=== PATIENT | female | born 1980 | race Hispanic/Latino ===

== ENCOUNTER 2016-12-15 14:00 | Outpatient (CLI) | payer OTHER ==
--- NOTE | 2016-12-15 16:05 | RAD ---
LEFT RIBS: 12/15/16 Three views obtained. HISTORY: Palpable nodule left chest. The left ribs appear unremarkable. There is no fracture or rib lesion seen. IMPRESSION: Unremarkable left ribs. POS: [facility]
== END 2016-12-15 14:01 | disposition home or self-care (01) ==
LOC: MADRAD 14:00
PROVIDERS: ATTEND Family Medicine
DX: R07.81 Pleurodynia (principal)

== ENCOUNTER 2017-03-29 12:08 | Outpatient (CLI) | payer OTHER | END 2017-03-29 12:09 | disposition home or self-care (01) | LOC: MADEKG 12:08 | PROVIDERS: ATTEND Family Medicine | DX: R42 Dizziness and giddiness (principal) | CPT/HCPCS: 93005; 93010 ==

== ENCOUNTER 2017-11-30 10:03 | Emergency (ER) | payer SELFPAY ==
[2017-11-30 10:33] LABS: Bilirubin Negative (Negative); Blood, Urine Negative (Negative); Clarity Clear (Clear); Glucose, Urine (Dipstick) Negative (Negative); Leukocyte Negative (Negative); Nitrite Negative (Negative); Protein, Urine (Dipstick) Negative (Neg-Trace); Urobilinogen 0.2 mg/dL (0.2-1.0)
[2017-11-30 10:34] LABS: Pregnancy Test - Urine (BHCG) Negative (Negative); Pregu Control Background? CLEAR/WHITE (CLR/WHITE); Pregu Control Bar Appear? YES (CONTROL BAR)
[2017-11-30 10:46] LABS: #Lymphocytes 1.3 thou/uL (1.20-3.40); #Monocytes 0.4 thou/uL (0.11-0.59); #Neutrophils 5.7 thou/uL (1.40-6.50); %Basophils 0.6 % (0.0-1.0); %Eosinophils 0.5 % (0.0-10.0); %Lymphocytes 17.1 % (21.0-51.0); %Monocytes 4.7 % (0.0-10.0); %Neutrophils 77.1 % (42.0-75.0); Hemoglobin 13.2 g/dL (12.0-16.0); Mean Corpuscular HGB CONC 33.5 g/dL (32.0-36.0); Mean Corpuscular Hemoglobin 28.6 pg (27.0-31.0); Mean Corpuscular Volume 85.4 fl (81.0-99.0); Mean Platelet Volume 6.7 fL (7.4-10.4); Platelet Count 321 thou/uL (130-400); RBC Distribution Width 11.6 % (11.5-14.5); Red Blood Cell (RBC) Count 4.61 mill/uL (4.20-5.40); White Blood Cell (WBC) Count 7.3 thou/uL (4.8-10.8)
[2017-11-30 11:01] LABS: ALT (SGPT) 20 U/L (8-55); AST (SGOT) 11 U/L (5-34); Albumin 4.3 g/dL (3.5-5.0); Alkaline Phosphatase 55 U/L (40-150); Anion Gap 13 mmol/L (10-20); BUN (Urea Nitrogen) 12 mg/dL (7.0-18.7); Bilirubin, Total 0.2 mg/dL (0.2-1.2); Calc. Creatinine Clearance 0 mL/min (70-130); Calcium 9.4 mg/dL (7.8-10.44); Carbon Dioxide 21 mmol/L (22-29); Chloride 109 mmol/L (98-107); Estimated GFR-MDRD Greater than 90; Globulin 3.3 g/dL (2.4-3.5); Glucose 106 mg/dL (70-105); Potassium 3.9 mmol/L (3.5-5.1); Protein, Total 7.6 g/dL (6.0-8.3); Sodium 139 mmol/L (136-145)
[2017-11-30 11:06] LABS: CKMB 0.5 ng/mL (0-6.6); Troponin I Less than 0.010 ng/mL (< 0.028)
--- NOTE | 2017-11-30 12:15 | RAD ---
CHEST 1 VIEW PROTABLE: HISTORY: A 37-year-old female with a history of chest pain. FINDINGS: Heart size is normal. The lungs are clear. IMPRESSION: No acute intrathoracic disease. No pneumonia, pneumothorax, pleural effusion, or other acute process . POS: [facility]
[2017-11-30 17:41] LABS: Free T4 (Free Thyroxine) 1.21 ng/dL (0.70-1.48)
== END 2017-11-30 11:38 | disposition home or self-care (01) ==
LOC: MADERS 10:03
DX: R55 Syncope and collapse (principal); E05.90 Thyrotoxicosis, unspecified without thyrotoxic crisis or storm; E78.00 Pure hypercholesterolemia, unspecified
CPT/HCPCS: 36415; 71045; 80053; 81003; 81025; 82553; 84439; 84443; 84479; 84484; 85025; 93005; 94760

== ENCOUNTER 2021-11-12 16:44 | Outpatient (CLI) | payer SELFPAY | END 2021-11-12 16:45 | disposition home or self-care (01) | LOC: MADRAD 16:44 | PROVIDERS: ATTEND Family Medicine | DX: R07.81 Pleurodynia (principal) ==